=== PATIENT | male | born 1960 ===

== ENCOUNTER 2017-07-08 13:46 | Emergency (ER) | payer OTHER ==
[2017-07-08 14:15] VITALS: BP 124/81; PULSE 69; RESP 18; TEMP 98.1; O2SAT 98
--- NOTE | 2017-07-08 15:25 | C.PDOC ---
History Of Present Illness 57 yr old male presents to the ER for scheduled suture removal from the right forearm after laceration was repaired here in ED 2 weeks ago. Patient denies any active complaints, denies fever, wound pain, swelling or drainage, denies weakness or numbness to Right arm. Ambulate to Ed for evaluation, not in any apparent distress. Time Seen by Provider: 07/08/17 15:01 Chief Complaint (Nursing): Suture/Staple Removal History Per: Patient Onset/Duration Of Symptoms: Days Ago (2 weeks ) Past Medical History Reviewed: Historical Data, Nursing Documentation, Vital Signs Vital Signs: Last Vital Signs Temp 98.1 F 07/08/17 14:13 Pulse 69 07/08/17 14:13 Resp 18 07/08/17 14:13 BP 124/81 07/08/17 14:13 Pulse Ox 98 07/09/17 09:40 Family History: States: No Known Family Hx - Social History Hx Alcohol Use: No Hx Substance Use: No - Immunization History Hx Tetanus Toxoid Vaccination: No Hx Influenza Vaccination: No Hx Pneumococcal Vaccination: No Review Of Systems Except As Marked, All Systems Reviewed And Found Negative. Constitutional: Negative for: Fever Skin: Positive for: Other (Sutures on the right forearm.) Neurological: Negative for: Weakness, Numbness Physical Exam - Physical Exam Appears: Well, Non-toxic, No Acute Distress Skin: Normal Color, Warm, Other (rIGHT FOREAM: WELL HEALING LACERATION CLOSED WITH SUTUERS #3, NO WOUND DRAINING, NO CELLULITIS.) ED Course And Treatment O2 Sat by Pulse Oximetry: 98 (RA ) Pulse Ox Interpretation: Normal Progress Note: WOund cleaned, sutures removed entirely without difficulty. No evidence of cellulitis. Pt advised on wound care. ref. to f/u with PMD as need for further eval/tx. Disposition Counseled Patient/Family Regarding: Diagnosis, Need For Followup - Disposition Referrals: Yaya Roper MD [Medical Doctor] - Disposition: HOME/ ROUTINE Disposition Time: 15:02 Condition: STABLE Instructions: Stitches Removal (ED) Forms: [employer] Connect (Arabic) - Clinical Impression Clinical Impression: Removal of suture - PA / DOCENT COORDINATOR / Resident Statement MD/DO has reviewed & agrees with the documentation as recorded. - Scribe Statement The provider has reviewed the documentation as recorded by the Scribe Yola Mace All medical record entries made by the Scribe were at my direction and personally dictated by me. I have reviewed the chart and agree that the record accurately reflects my personal performance of the history, physical exam, medical decision making, and the department course for this patient. I have also personally directed, reviewed, and agree with the discharge instructions and disposition.
== END 2017-07-08 15:30 | disposition home or self-care (01) ==
LOC: C.ER 13:46
DX: Z48.02 Encounter for removal of sutures (principal)

== ENCOUNTER 2017-07-10 18:20 | Emergency (ER) | payer OTHER ==
[2017-07-10 18:34] VITALS: BP 109/75; PULSE 72; RESP 18; TEMP 98.2; O2SAT 99
--- NOTE | 2017-07-10 18:39 | C.PDOC ---
History Of Present Illness 57 year old male presents to the ED with complaints of left shoulder pain since yesterday while lifting a heavy object at work. Patient notes an achy pain exacerbated by movement and some right shoulder pain. He denies chest pain, shortness of breath, or other complaints at this time. Time Seen by Provider: 07/10/17 18:36 Chief Complaint (Nursing): Upper Extremity Problem/Injury History Per: Patient History/Exam Limitations: no limitations Onset/Duration Of Symptoms: Days (1 day ) Current Symptoms Are (Timing): Still Present Quality: Aching Exacerbating Factor(s): Movement Recent travel outside of the [place]: No Past Medical History Reviewed: Historical Data, Nursing Documentation, Vital Signs Vital Signs: Last Vital Signs Temp 98.2 F 07/10/17 18:30 Pulse 72 07/10/17 18:30 Resp 18 07/10/17 18:30 BP 109/75 07/10/17 18:30 Pulse Ox 99 07/10/17 20:06 - Medical History PMH: No Chronic Diseases Surgical History: No Surg Hx Family History: States: Unknown Family Hx - Social History Hx Alcohol Use: No Hx Substance Use: No - Immunization History Hx Tetanus Toxoid Vaccination: No Hx Influenza Vaccination: No Hx Pneumococcal Vaccination: No Review Of Systems Constitutional: Negative for: Fever, Chills Cardiovascular: Negative for: Chest Pain Respiratory: Negative for: Cough, Shortness of Breath Musculoskeletal: Positive for: Shoulder Pain (left shoulder pain with slight right shoulder pain) Neurological: Negative for: Weakness, Numbness Physical Exam - Physical Exam Appears: Non-toxic, No Acute Distress Skin: Warm, Dry Head: Atraumatic, Normacephalic Eye(s): bilateral: Normal Inspection, EOMI Oral Mucosa: Moist Neck: Normal ROM, Supple Chest: Symmetrical, No Deformity Cardiovascular: Rhythm Regular Respiratory: No Wheezing Extremity: Normal ROM, Tenderness (Tenderness to the anterior and lateral aspect of the left shoulder ), Capillary Refill (good capillary refill, less than two seconds ), No Deformity, No Swelling Neurological/Psych: Oriented x3, Normal Speech Gait: Steady ED Course And Treatment O2 Sat by Pulse Oximetry: 99 (room air ) - Other Rad Left Shoulder X-Ray X-Ray: Interpreted by Me, Viewed By Me Interpretation: No fracture or dislocations. Medical Decision Making Medical Decision Making: Impression: Left shoulder injury, likely muscular Plan: Xray of shoulder. Patient declined pain meds Progress: XRay reviewed by me showing normal shoulder joint, no dislocation, no fracture Arm sling applied by RN. Patient advise to rest and take NSAID for any pain. Disposition Counseled Patient/Family Regarding: Diagnosis, Need For Followup, Rx Given - Disposition Referrals: Delisa Strong MD [Staff Provider] - Disposition: HOME/ ROUTINE Disposition Time: 19:11 Condition: STABLE Additional Instructions: Your xray was normal, no fracture. Please apply ice to area 15 minutes three times a day. Take Motrin as needed for pain every 6 hours, with food to not upset stomach. Follow up with orthopedic if pain persists over one week. Prescriptions: Ibuprofen [Motrin] 600 mg PO Q8 #30 tab Instructions: Shoulder Sprain (ED) Forms: [employer] (Sammarinese) - POA Present On Arrival: None - Clinical Impression Clinical Impression: Shoulder strain, Muscle strain - PA / ENGINEER THIRD ASSISTANT / Resident Statement MD/DO has reviewed & agrees with the documentation as recorded. - Scribe Statement The provider has reviewed the documentation as recorded by the Scriberik Escamilla All medical record entries made by the [employer] were at my direction and personally dictated by me. I have reviewed the chart and agree that the record accurately reflects my personal performance of the history, physical exam, medical decision making, and the department course for this patient. I have also personally directed, reviewed, and agree with the discharge instructions and disposition.
--- NOTE | 2017-07-11 09:10 | RAD ---
PROCEDURE: Radiographs of the Left Shoulder HISTORY: pain s.p lifting injury COMPARISON: No prior. FINDINGS: BONES: Bone alignment and mineralization are normal. No acute fracture. JOINTS: Normal. Glenohumeral and acromioclavicular joints preserved. No osteoarthritis. SOFT TISSUES: Normal. OTHER FINDINGS: None. IMPRESSION: No acute fracture or dislocation.
== END 2017-07-10 19:20 | disposition home or self-care (01) ==
LOC: C.ER 18:20
DX: S46.912A Strain of unspecified muscle, fascia and tendon at shoulder and upper arm level, left arm, initial encounter (principal); X50.0XXA Overexertion from strenuous movement or load, initial encounter; Y92.89 Other specified places as the place of occurrence of the external cause; Y99.0 Civilian activity done for income or pay